=== PATIENT | female | born 1985 | race Caucasian/White ===

== ENCOUNTER 2020-01-22 14:30 | Emergency (ER) | payer MEDICAID ==
[~2020-01-22] VITALS: Ht 160 cm; Wt 93.0 kg
[~2020-01-22 14:30] MED LIST: IBUP200T49 PO; OXYC-302 PO
[2020-01-22 14:42] VITALS: BP 122/99
[2020-01-22] MEDS ORDERED: NEOSPORIN OINT. PKT 1 PACKET ONE (15:10)
[2020-01-22] MEDS ORDERED: LIDOCAINE-MPF 1%, 5ML ONE (15:10)
[2020-01-22] MEDS ORDERED: LIDOCAINE-MPF 1%, 5ML INFIL ONE (15:30)
== END 2020-01-22 16:27 | disposition home or self-care (01) ==
LOC: ED 16:14
DX: S61.210A Laceration without foreign body of right index finger without damage to nail, initial encounter (principal); F17.210 Nicotine dependence, cigarettes, uncomplicated; X99.8XXA Assault by other sharp object, initial encounter; Y93.89 Activity, other specified; Y92.009 Unspecified place in unspecified non-institutional (private) residence as the place of occurrence of the external cause; Y99.8 Other external cause status
CPT/HCPCS: 12001; 99406